=== PATIENT | female | born 1970 | race Two or more races ===

== ENCOUNTER 2021-06-04 20:18 | Emergency (ER) | payer OTHER ==
[~2021-06-04] VITALS: Ht 167.6 cm; Wt 65.8 kg
[2021-06-04] MEDS ORDERED: PEPCID AC20 MG PO (23:10)
== END 2021-06-05 ==
LOC: ER 20:18
DX: N39.0 Urinary tract infection, site not specified (principal); E86.0 Dehydration; R50.9 Fever, unspecified